=== PATIENT | female | born 1950 | race Asian ===

== ENCOUNTER 2016-07-18 13:17 | Emergency (ER) | payer OTHER ==
[~2016-07-18] VITALS: Ht 157.5 cm; Wt 61.2 kg
[2016-07-18 13:24] VITALS: BP 138/88
--- NOTE | 2016-07-18 14:33 | ED ANIMAL BITE/WOUND CHECK ---
History of Present Illness General Chief Complaint: Animal/Insect Bite Stated Complaint: BIT BY CAT Source: patient, friend Exam Limitations: no limitations Vital Signs & Intake/Output Vital Signs & Intake/Output Vital Signs Date Time Temp Pulse Resp B/P B/P Pulse O2 O2 Flow FiO2 Mean Ox Delivery Rate 07/18 1324 98.9 70 15 138/88 99 Room Air Room Air Allergies Coded Allergies: Sulfa (Sulfonamide Antibiotics) (Severe, ANAPHYLAXIS 07/18/16) Reconcile Medications Azithromycin 250 MG TABLET 1 DP PO AD cat bite 2 the first day followed by 1 for days 2-5 Triage Note: PT TO ED FOR CAT SCRATCH AND CAT BITE. UNKNOWN IF CAT IS UP TO DATE ON SHOTS. PT UNSURE OF LAST TETANUS. BITE IS ON R ANKLE, BLEEDING CONTROLLED. Triage Nurses Notes Reviewed? yes Onset: Just prior to arrival Duration: hour(s): Timing: single episode today Injury Environment: work Is Injury an Animal Bite? Yes Animal Type: cat Context of Animal Attack: unprovoked attack Appearance of Animal: appeared well Animal Immunization Status: unknown Observation/Capture: ANIMAL OBSERVED PRIOR TO BITE X4 DAYS Severity of Attack: bitten, scratched Severity: moderate No Modifying Factors: none HPI: 66-year-old female presents to emergency department complaining of cat bite and scratch. Patient states that while at work today at cat bit and scratched her right ankle. 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 The cat was observed for 4 days prior to bite and was acting normally. The cat was euthanized today. Vaccine status was unknown however autopsy results will be made available to patient. Patient is in good health otherwise, she feels mild burning at site of bite, she cleaned area with Betadine prior to arrival. The patient is unsure of her last tetanus shot. (THEO GILMAN) Past History Travel History Traveled to [place] past 21 day No Medical History Any Pertinent Medical History? see below for history Neurological: NONE EENT: NONE Cardiovascular: NONE Respiratory: NONE Gastrointestinal: NONE Hepatic: NONE Renal: NONE Musculoskeletal: NONE Psychiatric: NONE Endocrine: diabetes Blood Disorders: NONE Cancer(s): NONE INDUSTRIAL COOK/Reproductive: NONE Surgical History Surgical History: non-contributory Psychosocial History What is your primary language [place] Tobacco Use: Never used ETOH Use: denies use Illicit Drug Use: denies illicit drug use Family History Hx Contributory? No (THEO GILMAN) Review of Systems Review of Systems Constitutional: Reports: no symptoms. Comments Review of systems: See HPI, All other systems negative. Constitutional, no chills no fever, no malaise HEENT: No visual changes no sore throat Cardiovascular: No chest pain , no palpitation , Skin: no rashes, laceration Respiratory: No dyspnea no cough GI: No nausea no vomiting, no diarrhea, : No dysuria No hematuria Muscle skeletal: No joint pain, no joint swelling, no back pain, Neurologic: No numbness no confusion, no headache Psych: No stress no depression,. Heme/endocrine: No bruising Immunology: No lymphadenopathy (THEO GILMAN) Physical Exam Physical Exam General Appearance: well developed/nourished, no apparent distress, alert, awake Comments: Well-developed well-nourished person in no acute distress HEENT: Normal EENT exam; EOMI, no nystagmus. HEAD is atraumatic. moist mucous membranes. Neck: Supple, normal range of motion Back: Nontender, Full range of motion Cardiovascular: Regular rate and rhythms no murmurs Respiratory: Chest nontender.There were no bony deformities, no asymmetry. No respiratory distress. Patient speaking in full complete sentences. Breath sounds clear to auscultation bilaterally: NO W/R/R Extremity: No edema, full range of motion of extremities, normal and equal pulses bilaterally, 5 out of 5 strength noted to bilateral upper and lower extremities Neuro: Alert oriented x3, motor sensory normal, There were no obvious focal neurologic abnormalities. Skin: 0.5 cm laceration to right lateral ankle, superficial abrasions noted to the lateral medial right ankle no active bleeding nontender the rest of the skin is atraumatic No appreciable rash on exposed skin, skin is warm and dry. Psych: Mood and affect is normal, memory and judgment is normal. (THEO GILMAN) Progress Differential Diagnosis: abscess, cellulitis, CAT BITE, LYMPHANGITIS Plan of Care: Current Medications Sig/Maegan Start time Last Medication Dose Stop Time Status Admin Tetanus/Diphtheria 0.5 ML ONCE ONE 07/18 1445 AC Toxoids Adsorbed 07/18 1446 (Decavac) Patient is declining and refusing prescription for Augmentin tetanus IM ordered discussed with her that this is the first line antibiotic however she states that "I never take any antibiotics or greater than 250 mg. Azithromycin provided the patient states the cat is being tested currently for rabies she will return if test positive. I discussed with the patient at length all of their results. I had an extensive conversation regarding need for close follow up with their primary care physician this week as well as return precautions. I answered all of their questions, they feel comfortable with the plan and follow-up care. I discussed with the patient/family the medications that they will receive. I gave them signs and symptoms that could indicate an adverse reaction. I have advised them to limit their activities until they can see how they respond to the medication. (THEO GILMAN) Comments: 07/18/2016 2:56:34 PM Wound was cleaned and irrigated with normal saline and Betadine. Wound was closed with Steri-Strips and dressed. Patient tolerated procedure well. Patient refuses to take standard Augmentin antibiotic trial for her wound given high-dose, will take azithromycin for antibiotics to cover CAT Bite. She is sitting comfortably in chair, in no distress, she complains of no further symptoms. (THEO GILMAN) Departure Departure Time of Disposition: 1515 Disposition: HOME OR SELF CARE Condition: Stable Clinical Impression Primary Impression: Cat bite of right lower leg Referrals: PHAN GOODWIN,JOSE C (PCP/Family) Additional Instructions: Take Z pack as directed, monitor wound for signs of infection such as warmth, redness, swelling, increased pain, red streaking up leg from wound. Follow up with rabbies status of cat. Return with any concerns. Departure Forms: Customer [employer] Employee Industrial Acc[employer] General Discharge Information Prescriptions: Current Visit Scripts Azithromycin 1 DP PO AD #6 TAB 2 the first day followed by 1 for days 2-5 (THEO GILMAN) PA/ANESTHESIOLOGY RESIDENT Co-Sign Statement Statement: ED Attending supervision documentation- [] I saw and evaluated the patient. I have also reviewed all the pertinent lab results and diagnostic results. I agree with the findings and the plan of care as documented in the PA's/ANESTHESIOLOGY RESIDENT's documentation. [X] I have reviewed the ED Record and agree with the PA's/ANESTHESIOLOGY RESIDENT's documentation. [] Additions or exceptions (if any) to the PAs/ANESTHESIOLOGY RESIDENT's note and plan are summarized below: [] (MC GOODWIN,MEGAN) Procedures Laceration/Wound Repair Laceration/Wound Repair: Wound Location: RIGHT LATERAL LOWER LEG Wound's Depth, Shape: superficial Wound Length (cm): 0.5 Wound Explored: irrigated extensively Irrigated w/ Saline (ccs): 100 Betadine Prep? Yes Anesthesia: NONE Wound Repaired With: Steri-strips Layer Closure? No Sterile Dressing Applied: Yes Date of Last Tetanus: 07/18/16 Tetanus Status: up to date (MONIK ARMSTRONG,THEO)
[2016-07-18] MEDS ORDERED: AZITHROMYCIN250 M1 PO (14:49)
== END 2016-07-18 15:04 ==
LOC: ERH 13:17
DX: S81.851A Open bite, right lower leg, initial encounter (principal); W55.01XA Bitten by cat, initial encounter; Y92.9 Unspecified place or not applicable; Y93.9 Activity, unspecified
CPT/HCPCS: 90471; 90714